=== PATIENT | male | born 2000 | race African-American/Black ===

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

== ENCOUNTER 2021-08-31 11:49 | Emergency (ER) | payer OTHER ==
[~2021-08-31] VITALS: Ht 172.7 cm; Wt 75.0 kg
[~2021-08-31 11:49] MED LIST changes: +DIVA-112 PO; -DIVA-78 PO; -RISP1 PO; +RISP1TAB48 PO
[2021-08-31 12:20] LABS: COVID AG,FIA SOURCE NASOPHARYNGEAL
[2021-08-31 12:22] LABS: BASOPHILS % (AUTO) 0.7 % (0.0-2.0); EOSINOPHILS % (AUTO) 0.9 % (1.0-6.0); HEMOGLOBIN 13.7 g/dL (13.5-17.5); LYMPHOCYTES # (AUTO) 2.2 K/uL (1.0-4.8); LYMPHOCYTES % (AUTO) 23.8 % (22.0-44.0); MEAN CORPUSCULAR HEMOGLOBIN 27.7 pg (26.0-34.0); MEAN CORPUSCULAR HGB CONC 32.6 G/dL (31.0-37.0); MEAN CORPUSCULAR VOLUME 85 fL (80-100); MONOCYTES # (AUTO) 0.4 K/uL (0.1-1.0); MONOCYTES % (AUTO) 4.5 % (2.0-9.0); NEUTROPHILS # (AUTO) 6.4 K/uL (1.8-7.7); NEUTROPHILS % (AUTO) 70.1 % (40.0-70.0); PLATELET COUNT (AUTO) 217 K/uL (150-450); RED BLOOD CELL COUNT(AUTO) 4.94 MIL/uL (4.50-5.90)
[2021-08-31 12:35] LABS: ANION GAP 7 mmol/L (8-16); CALCIUM, TOTAL 9.3 mg/dL (8.8-10.5); CARBON DIOXIDE 31 mmol/L (22-29); CHLORIDE 105 mmol/L (98-107); GLUCOSE,RANDOM 80 mg/dL (70-110); POTASSIUM 4.2 mmol/L (3.5-5.1); SODIUM SERUM 143 mmol/L (136-145); UREA NITROGEN, BLOOD 15 mg/dL (7-18)
[2021-08-31 12:40] LABS: GLOMERULAR FILTR. RATE CALC > 60 mL/min (>60)
[2021-08-31 12:59] LABS: ALANINE AMINOTRANSFERASE 27 U/L (12-78); ALBUMIN 3.7 g/dL (3.4-5.0); ALKALINE PHOSPHATASE 89 U/L (46-116); ASPARTATE AMINOTRANSFERASE 21 U/L (15-37); BILIRUBIN,TOTAL 0.5 mg/dL (0.1-1.0); CREATINE KINASE, TOTAL ONLY 317 U/L (39-308); TOTAL PROTEIN, SERUM 6.8 g/dL (6.4-8.2)
[2021-08-31 13:16] VITALS: BP 128/60
== END 2021-08-31 13:19 | disposition home or self-care (01) ==
LOC: EMS 11:49
DX: R00.2 Palpitations (principal); F12.90 Cannabis use, unspecified, uncomplicated; F17.210 Nicotine dependence, cigarettes, uncomplicated; F31.9 Bipolar disorder, unspecified; Z79.899 Other long term (current) drug therapy; Z20.822 Contact with and (suspected) exposure to COVID-19
CPT/HCPCS: 36415; 80053; 82550; 84484; 85025; 87426; 93005; 99284; G0480

== ENCOUNTER 2021-10-12 23:29 | Inpatient (IN) | payer MEDICAID, OTHER ==
[~2021-10-12] VITALS: Ht 165.1 cm; Wt 74.1 kg
[2021-10-13] MEDS ORDERED: LORazepam 1 MG TABLET PO ONE (01:30)
[2021-10-13] MEDS ORDERED: HALOPERIDOL 5 MG TABLET PO ONE (01:30)
[2021-10-13] MEDS ORDERED: ZOLPIDEM TARTRATE 10 MG TABLET PO PRN (01:30)
[2021-10-13 01:34] LABS: COVID AG,FIA SOURCE NASOPHARYNGEAL
[2021-10-13 02:15] LABS: BASOPHILS % (AUTO) 1.2 % (0.0-2.0); EOSINOPHILS % (AUTO) 1.9 % (1.0-6.0); HEMATOCRIT 40.6 % (41-53); HEMOGLOBIN 13.8 g/dL (13.5-17.5); LYMPHOCYTES # (AUTO) 2.4 K/uL (1.0-4.8); LYMPHOCYTES % (AUTO) 29.5 % (22.0-44.0); MEAN CORPUSCULAR HEMOGLOBIN 28.8 pg (26.0-34.0); MEAN CORPUSCULAR HGB CONC 33.9 G/dL (31.0-37.0); MEAN CORPUSCULAR VOLUME 85 fL (80-100); MONOCYTES # (AUTO) 0.5 K/uL (0.1-1.0); NEUTROPHILS # (AUTO) 5.1 K/uL (1.8-7.7); NEUTROPHILS % (AUTO) 61.4 % (40.0-70.0); PLATELET COUNT (AUTO) 209 K/uL (150-450); RED BLOOD CELL COUNT(AUTO) 4.78 MIL/uL (4.50-5.90); RED CELL DISTRIBUTION WIDTH 13.1 % (11.5-14.5)
[2021-10-13 02:25] LABS: ANION GAP 6 mmol/L (8-16); CALCIUM, TOTAL 9.1 mg/dL (8.8-10.5); CARBON DIOXIDE 30 mmol/L (22-29); CHLORIDE 105 mmol/L (98-107); CREATININE 0.81 mg/dL (0.60-1.30); GLOMERULAR FILTR. RATE CALC > 60 mL/min (>60); GLUCOSE,RANDOM 81 mg/dL (70-110); POTASSIUM 3.8 mmol/L (3.5-5.1); SODIUM SERUM 141 mmol/L (136-145); UREA NITROGEN, BLOOD 11 mg/dL (7-18)
[2021-10-13 02:30] LABS: ALANINE AMINOTRANSFERASE 35 U/L (12-78); ALBUMIN 3.4 g/dL (3.4-5.0); ALKALINE PHOSPHATASE 70 U/L (46-116); ASPARTATE AMINOTRANSFERASE 23 U/L (15-37); BILIRUBIN,TOTAL 0.1 mg/dL (0.1-1.0); TOTAL PROTEIN, SERUM 6.4 g/dL (6.4-8.2)
[2021-10-13 16:29] VITALS: BP 131/62
[2021-10-13 16:42] VITALS: BP 131/62
[2021-10-13 17:49] VITALS: BP 131/62
[2021-10-13 20:20] VITALS: BP 126/75
[2021-10-13 21:59] VITALS: BP 126/75
[2021-10-14] MEDS ORDERED: PETROLATUM,WHITE 28 GM JELLY TP PRN (06:45)
[2021-10-14] MEDS ORDERED: LOPERAMIDE HCL 2 MG CAPSULE PO PRN (06:45)
[2021-10-14] MEDS ORDERED: NICOTINE 14 MG/24 HOUR PATCH TD PRN (06:45)
[2021-10-14] MEDS ORDERED: IBUPROFEN 400 MG TABLET PO PRN (06:45)
[2021-10-14] MEDS ORDERED: MAGNESIUM HYDROXIDE SUSPENSION 30 ML UDCUP PO PRN (06:45)
[2021-10-14] MEDS ORDERED: DOCUSATE SODIUM 100 MG CAPSULE PO PRN (06:45)
[2021-10-14] MEDS ORDERED: CloNIDine HCL 0.1 MG TABLET PO PRN (06:45)
[2021-10-14] MEDS ORDERED: MAG HYDROX/AL HYDROX/SIMETH ES 30 ML SUSPENSION UDCUP PO PRN (06:45)
[2021-10-14] MEDS ORDERED: GuaiFENesin/D-METHORPHAN [SUGAR-FREE] 200-20MG/10 ML SYRUP UDCUP PO PRN (06:45)
[2021-10-14] MEDS ORDERED: ACETAMINOPHEN 325 MG TABLET PO PRN (06:45)
[2021-10-14] MEDS ORDERED: ONDANSETRON HCL 4 MG TABLET PO PRN (06:45)
[2021-10-14] MEDS ORDERED: ALBUTEROL SULFATE HFA 90 MCG/PUFF 8 GM INHALER IH PRN (06:45)
[2021-10-14 08:27] VITALS: BP 129/64
[2021-10-14] MEDS: HALOPERIDOL 5 MG TABLET PO PRN ×2 (09:23→17:05)
[2021-10-14] MEDS: LORazepam 2 MG TABLET PO PRN ×2 (09:23→17:05)
[2021-10-14] MEDS: DIVALPROEX SODIUM 500 MG DR TABLET PO SCH ×2 (12:17→17:07)
[2021-10-14] MEDS: BuPROPion HCL 100 MG SR TABLET PO SCH (12:18)
[2021-10-14] MEDS: RisperiDONE 2 MG TABLET PO SCH ×2 (12:18→17:04)
[2021-10-14 15:28] VITALS: BP 129/64
[2021-10-14 20:40] VITALS: BP 110/62
[2021-10-15] MEDS: BuPROPion HCL 100 MG SR TABLET PO SCH (08:12)
[2021-10-15] MEDS: RisperiDONE 2 MG TABLET PO SCH ×2 (08:12→16:15)
[2021-10-15] MEDS: DIVALPROEX SODIUM 500 MG DR TABLET PO SCH ×2 (08:12→16:15)
[2021-10-15] MEDS: HALOPERIDOL 5 MG TABLET PO PRN ×2 (08:13→16:15)
[2021-10-15] MEDS: LORazepam 2 MG TABLET PO PRN ×2 (08:13→16:15)
[2021-10-15 08:30] VITALS: BP 118/79
[2021-10-15 20:12] VITALS: BP 116/71
[2021-10-16] MEDS: LORazepam 2 MG TABLET PO PRN ×2 (08:12→16:11)
[2021-10-16] MEDS: RisperiDONE 2 MG TABLET PO SCH ×2 (08:12→16:11)
[2021-10-16] MEDS: HALOPERIDOL 5 MG TABLET PO PRN ×2 (08:12→16:11)
[2021-10-16] MEDS: DIVALPROEX SODIUM 500 MG DR TABLET PO SCH ×2 (08:12→16:11)
[2021-10-16] MEDS: BuPROPion HCL 100 MG SR TABLET PO SCH (08:12)
[2021-10-16 20:10] VITALS: BP 124/68
[2021-10-17] MEDS: DIVALPROEX SODIUM 500 MG DR TABLET PO SCH ×2 (08:28→16:27)
[2021-10-17 08:29] VITALS: BP 141/79
[2021-10-17] MEDS: BuPROPion HCL 100 MG SR TABLET PO SCH (08:29)
[2021-10-17] MEDS: RisperiDONE 2 MG TABLET PO SCH ×2 (08:29→16:28)
[2021-10-17] MEDS: LORazepam 2 MG TABLET PO PRN ×2 (09:42→16:27)
[2021-10-17] MEDS: HALOPERIDOL 5 MG TABLET PO PRN (16:28)
[2021-10-17 20:05] VITALS: BP 128/66
[2021-10-18 08:04] VITALS: BP 118/62
[2021-10-18] MEDS: RisperiDONE 2 MG TABLET PO SCH ×2 (09:00→16:59)
[2021-10-18] MEDS: BuPROPion HCL 100 MG SR TABLET PO SCH ×2 (09:08→09:12)
[2021-10-18] MEDS: DIVALPROEX SODIUM 500 MG DR TABLET PO SCH ×2 (09:08→16:59)
[2021-10-18 20:08] VITALS: BP 119/82
[2021-10-19 08:09] VITALS: BP 124/63
[2021-10-19] MEDS: BuPROPion HCL 100 MG SR TABLET PO SCH (08:38)
[2021-10-19] MEDS: DIVALPROEX SODIUM 500 MG DR TABLET PO SCH ×2 (08:38→17:04)
[2021-10-19] MEDS: RisperiDONE 2 MG TABLET PO SCH ×2 (08:38→17:00)
[2021-10-19 20:33] VITALS: BP 131/65
[2021-10-20 08:16] VITALS: BP 128/76
[2021-10-20] MEDS: DIVALPROEX SODIUM 500 MG DR TABLET PO SCH ×2 (08:18→16:30)
[2021-10-20] MEDS: BuPROPion HCL 100 MG SR TABLET PO SCH (08:18)
[2021-10-20] MEDS: RisperiDONE 2 MG TABLET PO SCH (08:18)
[2021-10-20] MEDS: RisperiDONE 3 MG TABLET PO SCH (16:29)
[2021-10-20 20:41] VITALS: BP 114/67
[2021-10-20] MEDS: LORazepam 2 MG TABLET PO PRN (22:58)
[2021-10-21 08:18] VITALS: BP 116/72
[2021-10-21] MEDS: RisperiDONE 3 MG TABLET PO SCH ×2 (09:00→16:28)
[2021-10-21] MEDS: BuPROPion HCL 100 MG SR TABLET PO SCH (09:00)
[2021-10-21] MEDS: DIVALPROEX SODIUM 500 MG DR TABLET PO SCH ×2 (09:01→16:27)
[2021-10-21 09:11] LABS: GLUCOMETER DEV NAME(LOC) POC.BV
[2021-10-21] MEDS: LORazepam 2 MG TABLET PO PRN (16:27)
[2021-10-21] MEDS: HALOPERIDOL 5 MG TABLET PO PRN (16:27)
[2021-10-21 20:10] VITALS: BP 115/64
[2021-10-22] MEDS: LORazepam 2 MG TABLET PO PRN ×3 (05:07→16:16)
[2021-10-22 08:17] VITALS: BP 115/61
[2021-10-22] MEDS: DIVALPROEX SODIUM 500 MG DR TABLET PO SCH ×2 (08:30→16:16)
[2021-10-22] MEDS: RisperiDONE 3 MG TABLET PO SCH ×3 (09:00→16:17)
[2021-10-22] MEDS: BuPROPion HCL 100 MG SR TABLET PO SCH ×2 (09:00→09:38)
[2021-10-22] MEDS: HALOPERIDOL 5 MG TABLET PO PRN (16:16)
[2021-10-22 20:15] VITALS: BP 122/78
[2021-10-23] MEDS: BuPROPion HCL 100 MG SR TABLET PO SCH (09:19)
[2021-10-23] MEDS: RisperiDONE 3 MG TABLET PO SCH ×2 (09:19→16:19)
[2021-10-23] MEDS: DIVALPROEX SODIUM 500 MG DR TABLET PO SCH ×2 (09:19→16:12)
[2021-10-23 20:22] VITALS: BP 136/79
[2021-10-24] MEDS: LORazepam 2 MG TABLET PO PRN ×3 (03:13→16:04)
[2021-10-24] MEDS: BuPROPion HCL 100 MG SR TABLET PO SCH ×2 (08:14→08:18)
[2021-10-24] MEDS: RisperiDONE 3 MG TABLET PO SCH ×3 (08:15→16:07)
[2021-10-24] MEDS: DIVALPROEX SODIUM 500 MG DR TABLET PO SCH ×2 (08:15→16:04)
[2021-10-24 08:45] VITALS: BP 107/67
[2021-10-25 04:05] VITALS: BP 110/76
[2021-10-25 08:40] VITALS: BP 115/73
[2021-10-25] MEDS: BuPROPion HCL 100 MG SR TABLET PO SCH ×2 (08:46→09:00)
[2021-10-25] MEDS: RisperiDONE 3 MG TABLET PO SCH ×2 (08:46→09:00)
[2021-10-25] MEDS: DIVALPROEX SODIUM 500 MG DR TABLET PO SCH (08:46)
[2021-10-25] MEDS ORDERED: BUPR-225 PO (10:55)
[2021-10-25] MEDS ORDERED: DIVA-112 PO (10:55)
[2021-10-25] MEDS ORDERED: RISP3TAB63 PO (10:55)
== END 2021-10-25 13:43 | disposition home or self-care (01) | DRG 750 ==
LOC: EMS 23:30 → B3A 10-13 13:20
PROVIDERS: ADMIT Psychiatry & Neurology Child & Adolescent Psychiatry; ATTEND Psychiatry & Neurology Child & Adolescent Psychiatry
DX: F25.1 Schizoaffective disorder, depressive type (principal); Z91.14 Patient's other noncompliance with medication regimen; F10.10 Alcohol abuse, uncomplicated; F17.210 Nicotine dependence, cigarettes, uncomplicated; F19.10 Other psychoactive substance abuse, uncomplicated; Z20.822 Contact with and (suspected) exposure to COVID-19; F41.9 Anxiety disorder, unspecified; G47.00 Insomnia, unspecified; F14.90 Cocaine use, unspecified, uncomplicated; Z59.00 Homelessness unspecified; Z79.899 Other long term (current) drug therapy
CPT/HCPCS: 80053; 80164; 85025; 99285; G0480

== ENCOUNTER 2021-10-29 02:34 | Emergency (ER) | payer MEDICAID, OTHER ==
[~2021-10-29] VITALS: Ht 172.7 cm; Wt 165.0 kg
[~2021-10-29 02:34] MED LIST changes: +BUPR-225 PO; -METH27TA PO; -RISP1TAB48 PO; +RISP3TAB63 PO
[2021-10-29 03:05] VITALS: BP 120/60
[2021-10-29] MEDS ORDERED: RisperiDONE 1 MG TABLET PO ONE (03:15)
== END 2021-10-29 03:34 | disposition home or self-care (01) ==
LOC: EMS 02:35
DX: F25.9 Schizoaffective disorder, unspecified (principal); T73.0XXA Starvation, initial encounter; F31.9 Bipolar disorder, unspecified; F17.210 Nicotine dependence, cigarettes, uncomplicated; F14.90 Cocaine use, unspecified, uncomplicated; F12.90 Cannabis use, unspecified, uncomplicated; F15.90 Other stimulant use, unspecified, uncomplicated; Z59.00 Homelessness unspecified; X58.XXXA Exposure to other specified factors, initial encounter
CPT/HCPCS: 99283

== ENCOUNTER 2021-12-18 08:29 | Emergency (ER) | payer OTHER ==
[~2021-12-18] VITALS: Ht 172.7 cm; Wt 68.2 kg
[2021-12-18 08:35] VITALS: BP 149/80
== END 2021-12-18 09:10 | disposition left against medical advice (07) ==
LOC: EMS 08:32
DX: F20.9 Schizophrenia, unspecified (principal); F31.9 Bipolar disorder, unspecified; F17.210 Nicotine dependence, cigarettes, uncomplicated; F12.90 Cannabis use, unspecified, uncomplicated; F15.90 Other stimulant use, unspecified, uncomplicated; F14.90 Cocaine use, unspecified, uncomplicated; Z98.890 Other specified postprocedural states; Z88.8 Allergy status to other drugs, medicaments and biological substances; Z53.21 Procedure and treatment not carried out due to patient leaving prior to being seen by health care provider
CPT/HCPCS: 99281

== ENCOUNTER 2022-01-04 02:59 | Inpatient (IN) | payer MEDICAID, OTHER ==
[~2022-01-04] VITALS: Ht 172.7 cm; Wt 74.0 kg
[2022-01-04 03:35] LABS: BASOPHILS % (AUTO) 0.4 % (0.0-2.0); EOSINOPHILS % (AUTO) 0.4 % (1.0-6.0); HEMATOCRIT 48.4 % (41-53); LYMPHOCYTES # (AUTO) 1.9 K/uL (1.0-4.8); LYMPHOCYTES % (AUTO) 16.2 % (22.0-44.0); MEAN CORPUSCULAR HEMOGLOBIN 28.5 pg (26.0-34.0); MEAN CORPUSCULAR HGB CONC 33.1 G/dL (31.0-37.0); MEAN CORPUSCULAR VOLUME 86 fL (80-100); MONOCYTES # (AUTO) 0.7 K/uL (0.1-1.0); MONOCYTES % (AUTO) 5.7 % (2.0-9.0); NEUTROPHILS % (AUTO) 77.3 % (40.0-70.0); PLATELET COUNT (AUTO) 191 K/uL (150-450); RED BLOOD CELL COUNT(AUTO) 5.63 MIL/uL (4.50-5.90); RED CELL DISTRIBUTION WIDTH 14.1 % (11.5-14.5)
[2022-01-04 03:46] LABS: ANION GAP 6 mmol/L (8-16); CALCIUM, TOTAL 9.8 mg/dL (8.8-10.5); CARBON DIOXIDE 35 mmol/L (22-29); CHLORIDE 101 mmol/L (98-107); CREATININE 0.97 mg/dL (0.60-1.30); GLOMERULAR FILTR. RATE CALC > 60 mL/min (>60); GLUCOSE,RANDOM 109 mg/dL (70-110); POTASSIUM 4.5 mmol/L (3.5-5.1); SODIUM SERUM 142 mmol/L (136-145); UREA NITROGEN, BLOOD 9 mg/dL (7-18)
[2022-01-04 03:52] LABS: ALANINE AMINOTRANSFERASE 41 U/L (12-78); ALBUMIN 4.2 g/dL (3.4-5.0); ALKALINE PHOSPHATASE 95 U/L (46-116); ASPARTATE AMINOTRANSFERASE 57 U/L (15-37); BILIRUBIN,TOTAL 0.2 mg/dL (0.1-1.0); VALPROIC ACID 37 mcg/mL (50-100)
[2022-01-04] MEDS ORDERED: HALOPERIDOL 5 MG TABLET PO ONE ×2 (04:15→10:00)
[2022-01-04] MEDS ORDERED: DiphenhydrAMINE HCL 25 MG CAPSULE PO ONE ×2 (04:15→10:00)
[2022-01-04] MEDS ORDERED: LORazepam 1 MG TABLET PO ONE (04:15)
[2022-01-04 04:24] LABS: COVID AG,FIA SOURCE NASOPHARYNGEAL
[2022-01-04] MEDS ORDERED: LORazepam 2 MG TABLET PO ONE (10:00)
[2022-01-04] MEDS ORDERED: HydrOXYzine PAMOATE 50 MG CAPSULE PO PRN (14:00)
[2022-01-04] MEDS ORDERED: MAGNESIUM HYDROXIDE SUSPENSION 30 ML UDCUP PO PRN (14:00)
[2022-01-04] MEDS ORDERED: ACETAMINOPHEN 325 MG TABLET PO PRN (14:00)
[2022-01-04] MEDS ORDERED: PALIPERIDONE PALMITATE 234 MG/1.5 ML SYRINGE IM ONE (14:00)
[2022-01-04] MEDS ORDERED: MAG HYDROX/AL HYDROX/SIMETH ES 30 ML SUSPENSION UDCUP PO PRN (14:00)
[2022-01-04] MEDS ORDERED: TUBERCULIN, PURIFIED PROTEIN DERIVATIVE 5 TU/0.1 ML SYRINGE ID ONE (14:00)
[2022-01-04] MEDS ORDERED: GuaiFENesin/D-METHORPHAN [SUGAR-FREE] 200-20MG/10 ML SYRUP UDCUP PO PRN (14:00)
[2022-01-04] MEDS ORDERED: PROMETHAZINE HCL 25 MG TABLET PO PRN (14:00)
[2022-01-04] MEDS ORDERED: LOPERAMIDE HCL 2 MG CAPSULE PO PRN (14:00)
[2022-01-04 16:07] VITALS: BP 138/70
[2022-01-04] MEDS: LORazepam 2 MG TABLET PO PRN (17:21)
[2022-01-04] MEDS: THIAMINE 100 MG TABLET PO SCH (17:21)
[2022-01-04 20:07] VITALS: BP 130/66
[2022-01-04] MEDS: PALIPERIDONE 3 MG ER TABLET PO SCH (21:00)
[2022-01-04] MEDS: MELATONIN 5 MG TABLET PO SCH (21:00)
[2022-01-04] MEDS: DIVALPROEX SODIUM 500 MG ER TABLET PO SCH (21:00)
[2022-01-05 08:05] LABS: CHOL/HDL RATIO 3.1 (4.2-7.3); FREE T4 (FREE THYROXINE) 0.64 ng/dL (0.76-1.46); THYROID STIMULATING HORMONE 1.29 uIU/mL (0.36-3.74)
[2022-01-05 08:11] VITALS: BP 104/52
[2022-01-05] MEDS: NALTREXONE HCL 50 MG TABLET PO SCH (08:17)
[2022-01-05] MEDS: THIAMINE 100 MG TABLET PO SCH ×2 (08:17→17:16)
[2022-01-05] MEDS: MULTIVITAMINS WITH MINERALS, THERAPEUTIC TABLET PO SCH (08:17)
[2022-01-05] MEDS: OMEGA-3/DHA/EPA/FISH OIL 1,000 MG CAPSULE PO SCH (08:17)
[2022-01-05] MEDS: FOLIC ACID 1 MG TABLET PO SCH (08:17)
[2022-01-05] MEDS: PALIPERIDONE 1.5 MG ER TABLET PO PRN (17:16)
[2022-01-05] MEDS: LORazepam 2 MG TABLET PO PRN (17:16)
[2022-01-05 20:15] VITALS: BP 118/66
[2022-01-05] MEDS: PALIPERIDONE 3 MG ER TABLET PO SCH (20:16)
[2022-01-05] MEDS: DIVALPROEX SODIUM 500 MG ER TABLET PO SCH (20:16)
[2022-01-05] MEDS: MELATONIN 5 MG TABLET PO SCH (20:16)
[2022-01-05] MEDS ORDERED: ONDANSETRON HCL 4 MG TABLET PO PRN (23:15)
[2022-01-05] MEDS ORDERED: PETROLATUM,WHITE 28 GM JELLY TP PRN (23:15)
[2022-01-05] MEDS ORDERED: MAG HYDROX/AL HYDROX/SIMETH ES 30 ML SUSPENSION UDCUP PO PRN (23:15)
[2022-01-05] MEDS ORDERED: CloNIDine HCL 0.1 MG TABLET PO PRN (23:15)
[2022-01-05] MEDS ORDERED: ACETAMINOPHEN 325 MG TABLET PO PRN (23:15)
[2022-01-05] MEDS ORDERED: BACITRACIN 28 GM OINTMENT TP PRN (23:15)
[2022-01-05] MEDS ORDERED: IBUPROFEN 600 MG TABLET PO PRN (23:15)
[2022-01-05] MEDS ORDERED: BENZOCAINE/MENTHOL LOZENGE PO PRN (23:15)
[2022-01-05] MEDS ORDERED: OMEPRAZOLE 20 MG CAPSULE PO PRN (23:15)
[2022-01-05] MEDS ORDERED: DOCUSATE SODIUM 100 MG CAPSULE PO PRN (23:15)
[2022-01-05] MEDS ORDERED: ALBUTEROL SULFATE HFA 90 MCG/PUFF 8 GM INHALER IH PRN (23:15)
[2022-01-05] MEDS ORDERED: LOPERAMIDE HCL 2 MG CAPSULE PO PRN (23:15)
[2022-01-05] MEDS ORDERED: MAGNESIUM HYDROXIDE SUSPENSION 30 ML UDCUP PO PRN (23:15)
[2022-01-06] MEDS: FOLIC ACID 1 MG TABLET PO SCH (08:07)
[2022-01-06] MEDS: OMEGA-3/DHA/EPA/FISH OIL 1,000 MG CAPSULE PO SCH (08:07)
[2022-01-06] MEDS: THIAMINE 100 MG TABLET PO SCH ×2 (08:07→16:04)
[2022-01-06] MEDS: NALTREXONE HCL 50 MG TABLET PO SCH (08:07)
[2022-01-06] MEDS: MULTIVITAMINS WITH MINERALS, THERAPEUTIC TABLET PO SCH (08:07)
[2022-01-06 12:36] VITALS: BP 120/73
[2022-01-06] MEDS ORDERED: MELA5TAB40 PO (13:35)
[2022-01-06] MEDS ORDERED: OMEG-135 PO (13:35)
[2022-01-06] MEDS ORDERED: PALI3TAB14 PO (13:35)
[2022-01-06] MEDS ORDERED: NALT50TA PO (13:35)
[2022-01-06] MEDS ORDERED: DIVA-80 PO (13:35)
[2022-01-06] MEDS ORDERED: PALI117D IM (13:35)
[2022-01-06] MEDS ORDERED: PALI156D IM (13:35)
[2022-01-06] MEDS ORDERED: HALOPERIDOL LACTATE 5 MG/ML VIAL IM ONE (17:15)
[2022-01-06] MEDS ORDERED: LORazepam 2 MG/ML VIAL IM ONE (17:15)
[2022-01-06] MEDS ORDERED: DiphenhydrAMINE HCL 50 MG/ML VIAL IM ONE (17:15)
[2022-01-06] MEDS: DIVALPROEX SODIUM 500 MG ER TABLET PO SCH (20:16)
[2022-01-06] MEDS: MELATONIN 5 MG TABLET PO SCH (20:17)
[2022-01-06] MEDS: PALIPERIDONE 3 MG ER TABLET PO SCH (20:17)
[2022-01-06 20:30] VITALS: BP 128/72
[2022-01-07] MEDS: LORazepam 2 MG TABLET PO PRN (08:21)
[2022-01-07] MEDS: OMEGA-3/DHA/EPA/FISH OIL 1,000 MG CAPSULE PO SCH (08:21)
[2022-01-07] MEDS: NALTREXONE HCL 50 MG TABLET PO SCH (08:21)
[2022-01-07] MEDS: FOLIC ACID 1 MG TABLET PO SCH (08:21)
[2022-01-07] MEDS: THIAMINE 100 MG TABLET PO SCH ×2 (08:21→16:50)
[2022-01-07] MEDS: MULTIVITAMINS WITH MINERALS, THERAPEUTIC TABLET PO SCH (08:21)
[2022-01-07 08:29] VITALS: BP 102/60
[2022-01-07] MEDS ORDERED: PALIPERIDONE PALMITATE 234 MG/1.5 ML SYRINGE IM ONE (18:45)
[2022-01-07] MEDS: PALIPERIDONE 6 MG ER TABLET PO SCH (20:40)
[2022-01-07] MEDS: MELATONIN 5 MG TABLET PO SCH (20:40)
[2022-01-07] MEDS: DIVALPROEX SODIUM 500 MG ER TABLET PO SCH (20:40)
[2022-01-08] MEDS: LORazepam 2 MG TABLET PO PRN ×2 (02:15→08:17)
[2022-01-08] MEDS: MULTIVITAMINS WITH MINERALS, THERAPEUTIC TABLET PO SCH (08:15)
[2022-01-08] MEDS: FOLIC ACID 1 MG TABLET PO SCH (08:16)
[2022-01-08] MEDS: THIAMINE 100 MG TABLET PO SCH ×2 (08:16→17:09)
[2022-01-08] MEDS: OMEGA-3/DHA/EPA/FISH OIL 1,000 MG CAPSULE PO SCH (08:16)
[2022-01-08] MEDS: NALTREXONE HCL 50 MG TABLET PO SCH (08:16)
[2022-01-08] MEDS ORDERED: PALIPERIDONE PALMITATE 156 MG/ML SYRINGE IM ONE (09:00)
[2022-01-08] MEDS ORDERED: HALOPERIDOL LACTATE 5 MG/ML VIAL ONE (11:09)
[2022-01-08] MEDS ORDERED: HALOPERIDOL LACTATE 5 MG/ML VIAL IM ONE (11:15)
[2022-01-08] MEDS ORDERED: LORazepam 2 MG/ML VIAL IM ONE (11:15)
[2022-01-08] MEDS ORDERED: DiphenhydrAMINE HCL 50 MG/ML VIAL IM ONE (11:15)
[2022-01-08 20:02] VITALS: BP 128/72
[2022-01-08] MEDS: MELATONIN 5 MG TABLET PO SCH (20:47)
[2022-01-08] MEDS: ZOLPIDEM TARTRATE 10 MG TABLET PO PRN (20:47)
[2022-01-08] MEDS: DIVALPROEX SODIUM 500 MG ER TABLET PO SCH (20:47)
[2022-01-08] MEDS: PALIPERIDONE 6 MG ER TABLET PO SCH (20:47)
[2022-01-09 08:01] VITALS: BP 106/62
[2022-01-09] MEDS: NALTREXONE HCL 50 MG TABLET PO SCH (08:01)
[2022-01-09] MEDS: DIVALPROEX SODIUM 500 MG ER TABLET PO SCH ×2 (08:01→20:25)
[2022-01-09] MEDS: FOLIC ACID 1 MG TABLET PO SCH (08:01)
[2022-01-09] MEDS: MULTIVITAMINS WITH MINERALS, THERAPEUTIC TABLET PO SCH (08:01)
[2022-01-09] MEDS: OMEGA-3/DHA/EPA/FISH OIL 1,000 MG CAPSULE PO SCH (08:01)
[2022-01-09] MEDS: THIAMINE 100 MG TABLET PO SCH ×2 (08:01→16:30)
[2022-01-09] MEDS: LORazepam 2 MG TABLET PO PRN ×3 (08:01→20:57)
[2022-01-09] MEDS: PALIPERIDONE 1.5 MG ER TABLET PO PRN (08:01)
[2022-01-09] MEDS: MELATONIN 5 MG TABLET PO SCH (20:26)
[2022-01-09] MEDS: ZOLPIDEM TARTRATE 10 MG TABLET PO PRN (20:26)
[2022-01-09] MEDS: PALIPERIDONE 6 MG ER TABLET PO SCH (20:26)
[2022-01-09 21:34] VITALS: BP 128/71
[2022-01-10] MEDS ORDERED: DiphenhydrAMINE HCL 50 MG/ML VIAL IM ONE (04:00)
[2022-01-10] MEDS ORDERED: ChlorproMAZINE HCL 50 MG/2 ML AMP IM ONE (04:00)
[2022-01-10] MEDS ORDERED: LORazepam 2 MG/ML VIAL IM ONE (04:00)
[2022-01-10 08:12] VITALS: BP 100/58
[2022-01-10] MEDS: DIVALPROEX SODIUM 500 MG ER TABLET PO SCH ×2 (09:00→20:23)
[2022-01-10] MEDS: MULTIVITAMINS WITH MINERALS, THERAPEUTIC TABLET PO SCH (09:00)
[2022-01-10] MEDS: THIAMINE 100 MG TABLET PO SCH ×2 (09:00→17:00)
[2022-01-10] MEDS: FOLIC ACID 1 MG TABLET PO SCH (09:00)
[2022-01-10] MEDS: NALTREXONE HCL 50 MG TABLET PO SCH (09:00)
[2022-01-10] MEDS: OMEGA-3/DHA/EPA/FISH OIL 1,000 MG CAPSULE PO SCH (09:00)
[2022-01-10] MEDS ORDERED: PALIPERIDONE PALMITATE 234 MG/1.5 ML SYRINGE IM ONE (17:45)
[2022-01-10 20:03] VITALS: BP 104/62
[2022-01-10] MEDS: PALIPERIDONE 6 MG ER TABLET PO SCH (20:24)
[2022-01-10] MEDS: LORazepam 2 MG TABLET PO PRN (20:24)
[2022-01-10] MEDS: MELATONIN 5 MG TABLET PO SCH (20:24)
[2022-01-11 08:09] VITALS: BP 117/65
[2022-01-11] MEDS: THIAMINE 100 MG TABLET PO SCH ×2 (08:13→16:40)
[2022-01-11] MEDS: NALTREXONE HCL 50 MG TABLET PO SCH (08:13)
[2022-01-11] MEDS: MULTIVITAMINS WITH MINERALS, THERAPEUTIC TABLET PO SCH (08:13)
[2022-01-11] MEDS: FOLIC ACID 1 MG TABLET PO SCH (08:13)
[2022-01-11] MEDS: OMEGA-3/DHA/EPA/FISH OIL 1,000 MG CAPSULE PO SCH (08:14)
[2022-01-11] MEDS: DIVALPROEX SODIUM 500 MG ER TABLET PO SCH ×2 (08:14→20:31)
[2022-01-11] MEDS ORDERED: PALIPERIDONE PALMITATE 156 MG/ML SYRINGE IM ONE (09:00)
[2022-01-11] MEDS ORDERED: PALIPERIDONE PALMITATE 234 MG/1.5 ML SYRINGE IM ONE (13:45)
[2022-01-11] MEDS: LORazepam 2 MG TABLET PO PRN (16:41)
[2022-01-11 20:11] VITALS: BP 126/71
[2022-01-11] MEDS: MELATONIN 5 MG TABLET PO SCH (20:32)
[2022-01-11] MEDS: PALIPERIDONE 6 MG ER TABLET PO SCH (20:32)
[2022-01-12 08:12] VITALS: BP 129/72
[2022-01-12] MEDS: DIVALPROEX SODIUM 500 MG ER TABLET PO SCH ×2 (08:18→20:21)
[2022-01-12] MEDS: LORazepam 2 MG TABLET PO PRN ×2 (08:18→20:22)
[2022-01-12] MEDS: THIAMINE 100 MG TABLET PO SCH ×2 (08:18→16:58)
[2022-01-12] MEDS: NALTREXONE HCL 50 MG TABLET PO SCH (08:18)
[2022-01-12] MEDS: FOLIC ACID 1 MG TABLET PO SCH (08:18)
[2022-01-12] MEDS: MULTIVITAMINS WITH MINERALS, THERAPEUTIC TABLET PO SCH (08:18)
[2022-01-12] MEDS: OMEGA-3/DHA/EPA/FISH OIL 1,000 MG CAPSULE PO SCH (08:18)
[2022-01-12 20:00] VITALS: BP 108/72
[2022-01-12] MEDS: MELATONIN 5 MG TABLET PO SCH (20:22)
[2022-01-13] MEDS: OMEGA-3/DHA/EPA/FISH OIL 1,000 MG CAPSULE PO SCH (08:08)
[2022-01-13] MEDS: MULTIVITAMINS WITH MINERALS, THERAPEUTIC TABLET PO SCH (08:08)
[2022-01-13] MEDS: THIAMINE 100 MG TABLET PO SCH ×2 (08:08→16:10)
[2022-01-13] MEDS: NALTREXONE HCL 50 MG TABLET PO SCH (08:08)
[2022-01-13] MEDS: LORazepam 2 MG TABLET PO PRN (08:08)
[2022-01-13] MEDS: DIVALPROEX SODIUM 500 MG ER TABLET PO SCH (08:08)
[2022-01-13] MEDS: FOLIC ACID 1 MG TABLET PO SCH (08:08)
[2022-01-13 10:56] LABS: GLUCOMETER DEV NAME(LOC) POC.BV
[2022-01-13] MEDS: MELATONIN 5 MG TABLET PO SCH (20:01)
[2022-01-13 20:02] VITALS: BP 114/74
[2022-01-14 08:00] VITALS: BP 117/65
[2022-01-14] MEDS: LORazepam 2 MG TABLET PO PRN ×2 (08:07→18:58)
[2022-01-14] MEDS: THIAMINE 100 MG TABLET PO SCH (08:08)
[2022-01-14] MEDS: MULTIVITAMINS WITH MINERALS, THERAPEUTIC TABLET PO SCH (08:08)
[2022-01-14] MEDS: NALTREXONE HCL 50 MG TABLET PO SCH (08:08)
[2022-01-14] MEDS: OMEGA-3/DHA/EPA/FISH OIL 1,000 MG CAPSULE PO SCH (08:08)
[2022-01-14] MEDS: DIVALPROEX SODIUM 500 MG ER TABLET PO SCH (08:08)
[2022-01-14] MEDS: FOLIC ACID 1 MG TABLET PO SCH (08:08)
[2022-01-14] MEDS ORDERED: PALIPERIDONE PALMITATE 156 MG/ML SYRINGE IM ONE (09:00)
[2022-01-14] MEDS ORDERED: NALT50TA PO (13:58)
[2022-01-14] MEDS ORDERED: MELA5TAB40 PO (13:58)
[2022-01-14] MEDS ORDERED: DIVA-80 PO (13:58)
[2022-01-14] MEDS ORDERED: PALI117D IM (13:58)
[2022-01-14] MEDS ORDERED: OMEG-135 PO (13:58)
[2022-01-14 20:06] VITALS: BP 124/68
[2022-01-14] MEDS: MELATONIN 5 MG TABLET PO SCH (20:12)
[2022-01-15 08:01] VITALS: BP 114/55
[2022-01-15] MEDS: OMEGA-3/DHA/EPA/FISH OIL 1,000 MG CAPSULE PO SCH (08:04)
[2022-01-15] MEDS: DIVALPROEX SODIUM 500 MG ER TABLET PO SCH (08:04)
[2022-01-15] MEDS: MULTIVITAMINS WITH MINERALS, THERAPEUTIC TABLET PO SCH (08:04)
[2022-01-15] MEDS: NALTREXONE HCL 50 MG TABLET PO SCH (08:04)
[2022-01-15] MEDS ORDERED: PALIPERIDONE PALMITATE 156 MG/ML SYRINGE IM ONE (09:00)
== END 2022-01-15 11:39 | disposition home or self-care (01) | DRG 750 ==
LOC: EMS 03:00 → B3A 07:48 → UNDOADMIN 10:10 → B3A 11:01
PROVIDERS: ADMIT Psychiatry & Neurology Psychiatry; ATTEND Psychiatry & Neurology Psychiatry
DX: F25.0 Schizoaffective disorder, bipolar type (principal); R45.851 Suicidal ideations; Z91.14 Patient's other noncompliance with medication regimen; F12.10 Cannabis abuse, uncomplicated; F41.9 Anxiety disorder, unspecified; F60.0 Paranoid personality disorder; G47.00 Insomnia, unspecified; F14.90 Cocaine use, unspecified, uncomplicated; Z20.822 Contact with and (suspected) exposure to COVID-19; K59.00 Constipation, unspecified; Z55.9 Problems related to education and literacy, unspecified; Z59.9 Problem related to housing and economic circumstances, unspecified; Z63.9 Problem related to primary support group, unspecified; Z65.3 Problems related to other legal circumstances; Z87.891 Personal history of nicotine dependence; Z91.199 Patient's noncompliance with other medical treatment and regimen due to unspecified reason; Z59.02 Unsheltered homelessness; Z79.899 Other long term (current) drug therapy; Z88.8 Allergy status to other drugs, medicaments and biological substances
CPT/HCPCS: 80053; 80061; 80164; 83036; 84439; 84443; 85025; 86592; 99285; G0480; J1200; J1630; J2060; J3230; Q9967